=== PATIENT | female | born 1990 | race Hispanic/Latino ===

== ENCOUNTER → 2018-09-08 | Day surgery (SDC) | payer OTHER ==
[~2018-09-08] MED LIST: FENTANYL CITRATE/PF 100MCG/2 ML INJ ONE; HYOSCYAMINE SULFATE 0.5 MG/ML INJ ONE; MIDAZOLAM HCL 2 MG/2 ML VIAL ONE; PANTOPRAZOLE SO40 MG PO; PROBIOTIC & AC1 EACH; PROPOFOL IV EMULSION 10 MG/ML 50 ML VIAL ONE
[2018-09-08 15:51] VITALS: BP 99/68
--- NOTE | 2018-09-08 15:57 | Operative Report ---
DATE OF PROCEDURE: September 08, 2018 REFERRING PHYSICIAN: Dr. Maame Chang PROCEDURES PERFORMED 1. Esophagogastroduodenoscopy with biopsies. 2. Colonoscopy with polypectomy and biopsy. INDICATIONS FOR EGD: Upper abdominal pain. INDICATIONS FOR COLONOSCOPY: Chronic intermittent diarrhea. MEDICATION: Patient was done under MAC. Please see anesthesiologist's note. PROCEDURE: With the patient in the left lateral decubitus position, the flexible fiberoptic Olympus gastroscope was introduced into the esophagus under direct visualization without any difficulty. There was some patchy erythema noted in the distal esophagus. The scope was then advanced with ease into the stomach. The mucosa overlying the antrum and the body revealed some patchy erythema and mild to moderate edema, and biopsies were obtained and sent to stain for H. pylori. A minute nodule was noted in the antrum and that was biopsied. The pylorus was of normal contour and shape. It was intubated with ease. The scope was advanced all the way to the 2nd portion of the duodenum. The scope was then withdrawn slowly. Mucosa overlying the proximal 2nd portion and the duodenal bulb appeared to be within normal limits. Biopsies were obtained to rule out sprue. The scope was then withdrawn back into the stomach and retroflexed. The mucosa overlying the fundus and the cardia appeared to be within normal limits. The scope was then straightened out. The stomach was decompressed. The scope was subsequently withdrawn. Patient tolerated the procedure well. IMPRESSION 1. Distal esophagitis, mild. 2. Gastritis, biopsied. Biopsies sent to stain for Helicobacter pylori. 3. Gastric nodule, antrum, biopsied. 4. Rule out sprue. PLAN: Follow up histology. Increase Protonix to 40 mg 1 p.o. a.c. b.i.d. Patient was then turned around. After adequate lubrication of the anal canal, a flexible fiberoptic Olympus colonoscope was inserted into the rectum with ease and advanced all the way to the cecum. The ileocecal valve was intubated and the scope was advanced into the terminal ileum. Biopsies were obtained. The scope was then withdrawn back into the colon. It was then withdrawn slowly. The mucosa overlying the ascending colon, transverse colon, and descending colon appeared to be within normal limits. The mucosa overlying the sigmoid and rectum revealed some patchy mild inflammatory changes and biopsies were obtained. Four polyps were hot biopsied from the sigmoid colon. The scope was then were retroflexed into the distal rectum and small internal hemorrhoids were noted, none of which was actively bleeding. The scope was then straightened out. It was subsequently withdrawn after securing an adequate stool specimen that was sent for the appropriate stool studies. Patient tolerated the procedure well. IMPRESSION 1. Proctosigmoiditis, mild. Biopsies obtained. 2. Sigmoid colon polyps times 4, hot biopsied. 3. Internal hemorrhoids, none actively bleeding. PLAN: Follow up histology. Follow up stool studies. Start Bentyl 10 mg 1 p.o. t.i.d. and VSL #3 one p.o. daily. Patient might benefit from a followup colonoscopy in 5 years. Job#: [id number] RI cc:MAAME CHANG MD
[2018-09-08 18:14] LABS: WBC,FECAL (FECAL LACTOFERRIN) NEGATIVE (NEGATIVE)
[2018-09-09 09:51] LABS: C DIFFICILE TOXIN A&B AMP PROB NEGATIVE (NEGATIVE)
== END | disposition home or self-care (01) ==
LOC: OR 13:03
PROVIDERS: ATTEND Internal Medicine Gastroenterology
DX: K63.5 Polyp of colon (principal); K64.8 Other hemorrhoids; K20.9 Esophagitis, unspecified; K29.70 Gastritis, unspecified, without bleeding; K63.89 Other specified diseases of intestine; E75.5 Other lipid storage disorders; R10.13 Epigastric pain; R19.7 Diarrhea, unspecified; Z80.0 Family history of malignant neoplasm of digestive organs; R68.81 Early satiety; R14.0 Abdominal distension (gaseous)
CPT/HCPCS: 43239; 45380; 45384; 81025; 83630; 83993; 87045; 87177; 87328; 87493; J1980; J2250; 45378

== ENCOUNTER → 2025-04-23 | Day surgery (SDC) | payer BC ==
[~2025-04-23] MED LIST changes: +LIDOCAINE HCL 2% LOCAL INJ 5 ML SDV VIAL INJ ONE; -PROPOFOL IV EMULSION 10 MG/ML 50 ML VIAL ONE; +PROPOFOL IV EMULSION 50 ML IV ONE; +[UNRECOGNIZED DRUG - OTHER] PO
[2025-04-23] MEDS: LACTATED RINGER'S 1,000 ML ONE (11:58)
[2025-04-23 15:47] VITALS: BP 121/76; PULSE 98; RESP 18; O2SAT 98
[2025-04-23 16:23] LABS: CDIFF AG QUIK CHEK NEGATIVE (NEGATIVE); CDIFF TOX QUIK CHEK NEGATIVE (NEGATIVE)
[2025-04-26 09:10] LABS: ENDOMYSIAL ANTIBODIES, IGA Negative (Negative)
[2025-04-26 09:55] LABS: TISSUE TRANSGLUTAMINASE IGA AB <2 U/mL (0-3)
== END | disposition home or self-care (01) ==
LOC: OR 11:25
PROVIDERS: ATTEND Internal Medicine Gastroenterology
DX: K29.70 Gastritis, unspecified, without bleeding (principal); K52.9 Noninfective gastroenteritis and colitis, unspecified; K20.90 Esophagitis, unspecified without bleeding; K44.9 Diaphragmatic hernia without obstruction or gangrene; K31.89 Other diseases of stomach and duodenum; K62.89 Other specified diseases of anus and rectum; K64.8 Other hemorrhoids; Z68.32 Body mass index [BMI] 32.0-32.9, adult; Z86.0100 Personal history of colon polyps, unspecified; Z71.3 Dietary counseling and surveillance; Z80.0 Family history of malignant neoplasm of digestive organs
CPT/HCPCS: 43239; 45380; 81025; 82784; 83516; 83630; 83993; 86256; 87045; 87177; 87324; 87328; 87449; J1980; J2003; J2250; J2470; J2704; J3010; J7121; 45378